=== PATIENT | female | born 1955 | race Caucasian/White ===

== ENCOUNTER 2020-04-08 04:52 | Inpatient (IN) | payer BC ==
[~2020-04-08] VITALS: Ht 165.1 cm; Wt 90.0 kg
[2020-04-08] MEDS ORDERED: SODIUM CHLORIDE 0.9% 1,000ML IVBOLUS ONE ×2 (05:30→08:30)
[2020-04-08] MEDS ORDERED: SODIUM CHLORIDE FLUSH 10ML SYR IVF ONE (05:30)
[2020-04-08] MEDS ORDERED: HYDROmorphone 1 MG/ML, 1ML INJ ONE ×3 (05:49→09:05)
[2020-04-08] MEDS ORDERED: ONDANSETRON 2MG/ML, 2ML ONE (05:49)
[2020-04-08] MEDS: HYDROmorphone 2 MG/ML, 1ML IVPush PRN ×2 (05:55→07:26)
[2020-04-08] MEDS ORDERED: ONDANSETRON 2MG/ML, 2ML IVPush ONE (06:00)
[2020-04-08 06:05] LABS: BASOPHILS % (AUTO) 0 % (0-1); EOSINOPHILS % (AUTO) 0 % (1-7); LYMPHOCYTES % (AUTO) 5 % (22-44); MEAN CORPUSCULAR HEMOGLOBIN 32.7 pg (27.0-34.8); MEAN CORPUSCULAR HGB CONC 34.7 g/dL (32.4-35.8); MEAN PLATELET VOLUME 8.1 fL (7.4-10.4); MONOCYTES % (AUTO) 3 % (2-9); NEUTROPHILS % (AUTO) 92 % (42-75); PLATELET COUNT 302 x10^3/uL (130-400)
[2020-04-08 06:06] LABS: ALBUMIN 3.9 g/dL (3.4-5.0); ANION GAP 7 mmol/L (5-15); CALCIUM 11.2 mg/dL (8.5-10.1); CHLORIDE 102 mmol/L (98-107)
[2020-04-08 06:11] LABS: MICROSCOPIC INDICATED
[2020-04-08 06:12] LABS: ALANINE AMINOTRANSFERASE 48 U/L (12-78); ALKALINE PHOSPHATASE 91 U/L (45-117); BILIRUBIN,TOTAL 1.3 mg/dL (0.2-1.0); CREATININE 1.07 mg/dL (0.55-1.02); TOTAL PROTEIN 8.8 g/dL (6.4-8.2)
[2020-04-08 06:24] LABS: MD NO
--- NOTE | 2020-04-08 07:00 | NUR ---
report from paco allen
--- NOTE | 2020-04-08 07:10 | NUR ---
US AT BEDSIDE MEDICATED PER EMAR FOR INCREASED PAIN RATED AT 10/10
--- NOTE | 2020-04-08 08:09 | NUR ---
WITH REASSESSMENT PAIN CONTROLLED TO 2/10 UPDATED ON ESTIMATED POC
[2020-04-08] MEDS ORDERED: HYDROmorphone 1 MG/ML, 1ML INJ IV PRN (09:00)
[2020-04-08] MEDS ORDERED: ONDANSETRON 2MG/ML, 2ML IVPush PRN (09:00)
[2020-04-08] MEDS ORDERED: DIPHENHYDRAMINE 50 MG/ML, 1ML ONE (09:05)
[2020-04-08] MEDS ORDERED: DEXAMETHASONE 4 MG/ML, 1ML ONE (09:10)
[2020-04-08] MEDS: LACTATED RINGERS 1,000 ML IV SCH ×3 (09:29→21:47)
[2020-04-08] MEDS ORDERED: DEXAMETHASONE 4 MG/ML, 1ML IVPush ONE (09:30)
[2020-04-08] MEDS ORDERED: DIPHENHYDRAMINE 50 MG/ML, 1ML IVPush ONE (09:30)
[2020-04-08] MEDS ORDERED: OMNIPAQUE 350 MG/ML, 100ML BOTTLE ONE (09:53)
--- NOTE | 2020-04-08 10:10 | NUR ---
DR. GRIFFITH CALLED FOR ADDITIONAL PAIN MEDICATION ORDERS PATIENT WITH RETURN IN PAIN TO 10/10 REPORT TO CAROLE ESTRELLA
[2020-04-08] MEDS ORDERED: LORazepam 2 MG/ML, 1ML ONE (10:15)
--- NOTE | 2020-04-08 10:19 | NUR ---
MEDICATED PER EMAR WITH ATIVAN FOR PAIN/AGITATION
[2020-04-08] MEDS ORDERED: LORazepam 2 MG/ML, 1ML IVPush PRN (10:30)
[2020-04-08] MEDS ORDERED: AMLO-211 PO (11:35)
[2020-04-08] MEDS ORDERED: LEVO100T5 PO (11:35)
[2020-04-08] MEDS ORDERED: ESOM20CA PO (11:37)
[2020-04-08 12:18] VITALS: BP 146/85
[2020-04-08] MEDS: HYDROmorphone 1 MG/ML, 1ML INJ IV PRN ×4 (12:58→21:46)
[2020-04-08 20:55] VITALS: BP 148/79
[2020-04-09] MEDS: HYDROmorphone 1 MG/ML, 1ML INJ IV PRN ×9 (01:08→23:48)
[2020-04-09 02:37] VITALS: BP 125/78
[2020-04-09] MEDS: LACTATED RINGERS 1,000 ML IV SCH ×5 (02:49→23:48)
[2020-04-09 06:22] LABS: BASOPHILS % (AUTO) 0 % (0-1); EOSINOPHILS % (AUTO) 0 % (1-7); LYMPHOCYTES % (AUTO) 10 % (22-44); MEAN CORPUSCULAR HEMOGLOBIN 32.6 pg (27.0-34.8); MEAN CORPUSCULAR HGB CONC 34.7 g/dL (32.4-35.8); MONOCYTES % (AUTO) 6 % (2-9); NEUTROPHILS % (AUTO) 83 % (42-75); PLATELET COUNT 230 x10^3/uL (130-400); RED BLOOD COUNT 4.59 x10^6/uL (3.82-5.3); RED CELL DISTRIBUTION WIDTH 12.9 % (9.6-15.2)
[2020-04-09 06:27] LABS: MD NO
[2020-04-09 06:38] LABS: CHLORIDE 107 mmol/L (98-107)
[2020-04-09 06:46] LABS: ALANINE AMINOTRANSFERASE 27 U/L (12-78); ALBUMIN 2.9 g/dL (3.4-5.0); ALKALINE PHOSPHATASE 62 U/L (45-117); ANION GAP 3 mmol/L (5-15); BILIRUBIN,TOTAL 0.8 mg/dL (0.2-1.0); CALCIUM 9.7 mg/dL (8.5-10.1); CREATININE 0.65 mg/dL (0.55-1.02); TOTAL PROTEIN 6.5 g/dL (6.4-8.2)
[2020-04-09 07:06] VITALS: BP 128/78
[2020-04-09 12:24] VITALS: BP 116/75
[2020-04-09 20:58] VITALS: BP 125/77
[2020-04-10 00:47] VITALS: BP 117/69
[2020-04-10] MEDS: HYDROmorphone 1 MG/ML, 1ML INJ IV PRN ×6 (02:31→20:58)
[2020-04-10] MEDS: LACTATED RINGERS 1,000 ML IV SCH ×4 (04:47→20:58)
[2020-04-10 07:54] VITALS: BP 111/67
[2020-04-10 13:40] VITALS: BP 138/78
[2020-04-10 18:35] VITALS: BP 136/75
[2020-04-10 18:54] VITALS: BP 119/77
[2020-04-11] MEDS: HYDROmorphone 1 MG/ML, 1ML INJ IV PRN (01:11)
[2020-04-11] MEDS: LACTATED RINGERS 1,000 ML IV SCH ×2 (01:11→08:36)
[2020-04-11 02:21] VITALS: BP 128/73
[2020-04-11 05:39] LABS: BASOPHILS % (AUTO) 0 % (0-1); EOSINOPHILS % (AUTO) 1 % (1-7); LYMPHOCYTES % (AUTO) 11 % (22-44); MEAN CORPUSCULAR HEMOGLOBIN 32.5 pg (27.0-34.8); MEAN CORPUSCULAR HGB CONC 34.9 g/dL (32.4-35.8); MEAN PLATELET VOLUME 8.6 fL (7.4-10.4); MONOCYTES % (AUTO) 8 % (2-9); NEUTROPHILS % (AUTO) 80 % (42-75); PLATELET COUNT 184 x10^3/uL (130-400); RED BLOOD COUNT 4.12 x10^6/uL (3.82-5.3); RED CELL DISTRIBUTION WIDTH 12.9 % (9.6-15.2)
[2020-04-11 05:44] LABS: ANION GAP 4 mmol/L (5-15); CALCIUM 9.9 mg/dL (8.5-10.1); CHLORIDE 103 mmol/L (98-107); CREATININE 0.56 mg/dL (0.55-1.02)
[2020-04-11 06:00] LABS: MD NO
[2020-04-11 06:56] VITALS: BP 132/90
[2020-04-11] MEDS ORDERED: LEVOTHYROXINE 100 MCG TABLET PO SCH (09:00)
[2020-04-11 12:44] VITALS: BP 134/83
== END 2020-04-11 13:10 | disposition home or self-care (01) | DRG 438 ==
LOC: ED 06:15 → SUATTDRO 08:48 → EDIP 09:01 → 4NE 10:40 → DCLOUNGE 04-11 13:07
PROVIDERS: ADMIT Hospitalist; ATTEND Internal Medicine
DX: K85.20 Alcohol induced acute pancreatitis without necrosis or infection (principal); N17.0 Acute kidney failure with tubular necrosis; E83.52 Hypercalcemia; E03.9 Hypothyroidism, unspecified; D75.1 Secondary polycythemia; E86.0 Dehydration; F17.210 Nicotine dependence, cigarettes, uncomplicated; I10 Essential (primary) hypertension; K80.20 Calculus of gallbladder without cholecystitis without obstruction; G47.30 Sleep apnea, unspecified; K21.9 Gastro-esophageal reflux disease without esophagitis; I95.9 Hypotension, unspecified; Z87.442 Personal history of urinary calculi; Z79.899 Other long term (current) drug therapy; Z91.041 Radiographic dye allergy status; Z82.49 Family history of ischemic heart disease and other diseases of the circulatory system
CPT/HCPCS: 36415; 74177; 76700; 80048; 80053; 81001; 82977; 83690; 85025; 96361; 96374; 99406; G0378; J1100; J1170; J2405; Q9967; J1200; J2060; J7030; J7120